=== PATIENT | female | born 1940 | race Caucasian/White ===

== ENCOUNTER 2019-01-28 12:40 | Outpatient (CLI) | payer MEDICARE, OTHER, SELFPAY ==
[2019-01-28 14:37] LABS: Basophils Percent Auto 0.3 % (0.2-1.2); Eosinophils Percent Auto 0.2 % (0-4.4); Hematocrit 40.5 % (37.0-47.0); Hemoglobin 13.3 g/dL (12.0-15.0); Immature Granulocyte Absolute 0.03 K/mm3 (0.00-0.031); Immature Granulocyte Percent A 0.3 % (0-0.5); Lymphocytes Absolute Auto 0.87 K/mm3 (0.9-3.2); Lymphocytes Percent Auto 8.6 % (18.3-44.2); Mean Corpuscular HGB Conc 32.8 g/dl (32-36); Mean Corpuscular Hemoglobin 29.4 pg (26-34); Mean Corpuscular Volume 89.6 fl (80-100); Mean Platelet Volume 9.9 fl (7.4-10.4); Monocytes Absolute Auto 0.7 K/mm3 (0.1-0.6); Monocytes Percent Auto 7.3 % (2.6-8.5); Neutrophils Absolute Auto 8.4 K/mm3 (1.3-6.7); Neutrophils Percent Auto 83.3 % (45.5-73.1); Platelet Count Result 190 k/mm3 (150-375); Red Blood Count 4.52 M/mm3 (4.2-5.4); Red Cell Distribution Width 13.4 % (11.5-14.5); White Blood Count 10.1 K/mm3 (4.5-10.0)
[2019-01-28 14:50] LABS: Albumin Level 4.5 g/dL (3.5-5.1); Estimated Glomerular Filt Rate > 60; Glucose 127 mg/dL (65-105)
[2019-01-28 14:57] LABS: Hemoglobin A1C 5.4 % (<5.7)
[2019-01-28 15:31] LABS: Urine Cotinine NEGATIVE
== END 2019-01-28 12:41 | disposition home or self-care (01) ==
LOC: ANHSURGERY 12:49
PROVIDERS: PCP Family Medicine; Visit Provider Orthopaedic Surgery
DX: Z01.818 Encounter for other preprocedural examination (principal); M17.0 Bilateral primary osteoarthritis of knee; I10 Essential (primary) hypertension; R94.31 Abnormal electrocardiogram [ECG] [EKG]; Z98.890 Other specified postprocedural states
CPT/HCPCS: 36415; 80307; 82040; 82565; 82947; 83036; 85025; 87081

== ENCOUNTER 2019-03-04 14:19 | Observation (INO) | payer MEDICARE, OTHER, SELFPAY ==
[2019-01-28 14:13] VITALS: BP 122/66; PULSE 72; RESP 18; TEMP 36.7; BMI 28.4
[2019-03-03] VITALS (11 sets, daily range): BP systolic 129–163; BP diastolic 68–110; PULSE 74–89; RESP 12–18; TEMP 36.5–36.9; O2SAT 92–99
[2019-03-03] MEDS: LACTATED RINGERS 1,000 ML 30 ML IV CONT ×2 (09:05→12:40)
--- NOTE | 2019-03-03 09:19 | WPDANESEPP ---
Anes - Eval Pre Procedure Procedure: Operation Date: 03/03/19 10:30 Proposed Procedures p Left Total Knee Arthroplasty(Left) - Devon Cuellar MD Date/Time: 03/03/19 09:19 Pre Op Diagnosis: Left Knee OA Patient Data Age: 78 Gender: F Height: 1.57 m Weight: 70.6 kg Last Vital Signs Temp 36.7 C 01/28/19 14:13 Pulse 72 01/28/19 14:13 Resp 18 01/28/19 14:13 BP 122/66 01/28/19 14:13 Allergies Allergy/AdvReac Type Severity Reaction Status Date / Time meperidine AdvReac Unknown Nausea Verified 01/28/19 14:02 Home Medications Medication Instructions Recorded Confirmed Type albuterol sulfate 1 inh INHALATION QID PRN 01/28/19 03/03/19 History alendronate 35 mg PO WEEKLY 01/28/19 03/03/19 History ascorbic acid (vitamin C) 1 g PO DAILY 01/28/19 03/03/19 History aspirin 1 tablet PO DAILY 01/28/19 03/03/19 History calcium carbonate [Calcium 600] 600 mg PO BID 01/28/19 03/03/19 History cholecalciferol (vitamin D3) 1,000 unit PO DAILY 01/28/19 03/03/19 History [Vitamin D3] diltiazem HCl 360 mg PO DAILY 01/28/19 03/03/19 History estradiol [Minivelle] 1 patch TRANSDERMAL 2XW 01/28/19 03/03/19 History fluticasone propionate 1 spray INTRANASAL DAILY 01/28/19 03/03/19 History glucosamine sulfate [Glucosamine] 500 mg PO DAILY 01/28/19 03/03/19 History levocetirizine 5 mg PO DAILY 01/28/19 03/03/19 History levothyroxine 150 mcg PO DAILY 01/28/19 03/03/19 History montelukast 10 mg PO DAILY 01/28/19 03/03/19 History multivitamin [Daily Multiple] 1 tablet PO DAILY 01/28/19 03/03/19 History omega 8-awc-lcy-fish oil [Fish Oil] 1 cap PO DAILY 01/28/19 03/03/19 History simvastatin 20 mg PO DAILY 01/28/19 03/03/19 History solifenacin [Vesicare] 10 mg PO DAILY 01/28/19 03/03/19 History vitamin E 400 unit PO DAILY 01/28/19 03/03/19 History zolpidem 5 mg PO HS 01/28/19 03/03/19 History budesonide-formoterol [Symbicort] 2 puff INHALATION Q12H 03/03/19 03/03/19 History Patient hx anesthesia problems: none Family hx anesthesia problems: none PMFSH Past Medical History Medical History Arthritis Hypertension Osteoarthritis of left knee Surgical History Surgical History History of bladder surgery (~2015) History of cholecystectomy (~1978) History of foot surgery (~1991) History of hysterectomy (~1975) History of laminectomy (~2012) History of shoulder surgery (~1996) History of total right knee replacement (~06/29/14) Social History Social History Smoking status: Never smoker Alcohol intake: never Gender identity (if verbalized by the patient): Female Exam Day of Procedure 03/03/19 09:19
--- NOTE | 2019-03-03 09:26 | WPDANESPNB ---
Anes - Peripheral Nerve Block Date/Time: 03/03/19 09:26 I have discussed with the patient/family/POA the placement of a peripheral nerve block for post-operative pain management, including associated risks, benefits, complications, and side effects. Alternative methods of post-operative analgesia were detailed. Questions were solicited and answers provided to the satisfaction of the patient/family/POA. Time-Out: A pre-procedural Time-Out was completed immediately before starting the procedure and confirmed: Patient Identification, Site, Procedure, Patient Position and the Availability of Requisite Equipment. Clinical Indications: Acute post-operative pain management requested by the operative surgeon. Nerve Block Insertion Note Anes-nerve block: adductor canal left Patient position: supine Skin prep: chlorhexidine Needle: 22 gauge, stimulating, insulated echogenic needle. Needle length: 80 mm Technique: ultrasound Injectate: bupivacaine 0.5% with epi 5 mcg/ml (30cc) Observations: tolerated well Complications: none Procedure start time:: 1020 Procedure end time:: 1022
--- NOTE | 2019-03-03 09:40 | WPDANESEPPF ---
Anes - Initial Pre Proc Eval Procedure: Operation Date: 03/03/19 10:30 Proposed Procedures p Left Total Knee Arthroplasty(Left) - Devon Cuellar MD Date/Time: 03/03/19 09:40 Surgeon: Devon Cuellar MD Pre Op Diagnosis: Left Knee OA Patient Data Age: 78 Gender: F Height: 1.57 m Weight: 68.7 kg Last Vital Signs Temp 36.9 C 03/03/19 09:20 Pulse 74 03/03/19 09:20 Resp 18 03/03/19 09:20 BP 149/73 H 03/03/19 09:20 Pulse Ox 96 03/03/19 09:20 Allergies Allergy/AdvReac Type Severity Reaction Status Date / Time meperidine AdvReac Unknown Nausea Verified 03/03/19 09:26 Home Medications Medication Instructions Recorded Confirmed Type albuterol sulfate 1 inh INHALATION QID PRN 01/28/19 03/03/19 History alendronate 35 mg PO WEEKLY 01/28/19 03/03/19 History ascorbic acid (vitamin C) 1 g PO DAILY 01/28/19 03/03/19 History aspirin 1 tablet PO DAILY 01/28/19 03/03/19 History calcium carbonate [Calcium 600] 600 mg PO BID 01/28/19 03/03/19 History cholecalciferol (vitamin D3) 1,000 unit PO DAILY 01/28/19 03/03/19 History [Vitamin D3] diltiazem HCl 360 mg PO DAILY 01/28/19 03/03/19 History estradiol [Minivelle] 1 patch TRANSDERMAL 2XW 01/28/19 03/03/19 History fluticasone propionate 1 spray INTRANASAL DAILY 01/28/19 03/03/19 History glucosamine sulfate [Glucosamine] 500 mg PO DAILY 01/28/19 03/03/19 History levocetirizine 5 mg PO DAILY 01/28/19 03/03/19 History levothyroxine 150 mcg PO DAILY 01/28/19 03/03/19 History montelukast 10 mg PO DAILY 01/28/19 03/03/19 History multivitamin [Daily Multiple] 1 tablet PO DAILY 01/28/19 03/03/19 History omega 9-hbj-qkb-fish oil [Fish Oil] 1 cap PO DAILY 01/28/19 03/03/19 History simvastatin 20 mg PO DAILY 01/28/19 03/03/19 History solifenacin [Vesicare] 10 mg PO DAILY 01/28/19 03/03/19 History vitamin E 400 unit PO DAILY 01/28/19 03/03/19 History zolpidem 5 mg PO HS 01/28/19 03/03/19 History budesonide-formoterol [Symbicort] 2 puff INHALATION Q12H 03/03/19 03/03/19 History Patient hx anesthesia problems: none Family hx anesthesia problems: none [facility] Past Medical History Medical History (Updated 03/03/19 @ 09:26 by Son Mcconnell DO) Arthritis Asthma Hyperlipidemia Hypertension Hypothyroidism Osteoarthritis of left knee Surgical History Surgical History History of bladder surgery (~2015) History of cholecystectomy (~1978) History of foot surgery (~1991) History of hysterectomy (~1975) History of laminectomy (~2012) History of shoulder surgery (~1996) History of total right knee replacement (~06/29/14) Social History Social History Smoking status: Never smoker Alcohol intake: never Gender identity (if verbalized by the patient): Female Anes - Eval Final PreProcedure Day of Procedure 03/03/19 09:40 Patient weight: overweight Heart: regular rate and rhythm Lungs: clear to auscultation and normal air movement Airway: Mallampati scale class II Neurological: alert and oriented Last oral intake: >/= 8 hours ASA classification: III Emergent: no Anesthetic plan: proceed Anesthesia type and monitoring: general LMA and standard monitoring Informed Consent: The patient's anesthetic plan and its attendant risks and benefits were discussed with the patient/family/POA. Questions were solicited and answers provided to the satisfaction of the patient/family/POA.
--- NOTE | 2019-03-03 10:35 | WPDHPUPDATE1 ---
History and Physical Update Update Date/Time: 03/03/19 10:35 History and Physical has been reviewed, including an updated exam of the patient. There are NO changes in the patient's condition. Risks, benefits, and alternatives have been discussed and questions answered. Patient agrees to proceed with procedure.
[2019-03-03] MEDS: ceFAZolin 2 GM/D5W 50 ML 2 GM/50 ML BAG IVPB (10:45)
[2019-03-03] MEDS: GENTAMICIN BONE CEMENT REFOBACIN 1 EACH TOPICAL (11:22)
--- NOTE | 2019-03-03 13:17 | P.OP_ITS ---
Procedure Note - Detailed Date of procedure: 03/03/19 Pre-op diagnosis: Left Knee OA Post-op diagnosis: same Procedure performed: Total knee arthroplasty, Implants: [employer] size 2 press-fit femur, size3 cemented low-profile tibia, 13mm CS polyethylene insert, 32mm asymmetric metal backed patellar component. Anesthesia: GETA and regional (subsartorial nerve block) Surgeon: Devon Cuellar MD Estimated blood loss (mL): 50 Drains: No Complications: None Findings: Good bone quality. 8 degree distal femoral resection at 5? valgus. Moderate medial release. Good PCL function. External rotation at 4? based on flexion gap gap balancing. OPERATIVE DETAILS: The patient was given a nerve block preoperatively, and then brought to the operating room. A general anesthetic was administered. The leg was prepped and draped in the usual sterile fashion. The limb was elevated and the tourniquet inflated to 300 mmHg during initial exposure. A longitudinal incision was created along the medial border of the patella and patellar tendon, and a minimally invasive optimized mid-vastus approach to the knee was performed. A moderate medial release was taken. The knee was then flexed. The osteophytes were carefully removed. The intramedullary guide was placed in the femoral canal. The distal femoral resection was then taken with the oscillating saw. The collateral ligaments were carefully protected. The tibia was carefully exposed. The jig was applied, and the proximal tibia was resected according to preoperative plan. The knee was balanced in extension. Appropriate releases were taken where needed. The anterior cruciate ligament and meniscal remnants were removed. The posterior cruciate ligament was preserved. The patella was measured. Patellar resection was carried out with the oscillating saw. The lug holes drilled. The femur was sized and rotation assessed using a combination of gap balancing, posterior referencing, and the AP axis. The 4 in 1 cutting block was used to finish the femoral cuts after equal gaps were assured. The lug holes were drilled. The osteophytes were carefully removed from the back of the knee. The knee was copiously irrigated with antibiotic solution periodically throughout the procedure. The meniscal remnants were removed. The spacer block was used to confirm equal flexion and extension gaps. Further releases were performed as needed. The tibia was sized and broached. The bony surfaces were prepared for cementing with pulsatile lavage. The real tibial component was cemented into position followed by press fitting the femoral component. Excess cement was carefully removed. The patella component was press- fit. Patellar tracking was carefully assessed. No additional releases were required. The wound was closed with #1 Vycril suture, #2 Quill suture, 0-Quill suture, and 2-0 Quill suture followed by Steri-Strips. A sterile bulky dressing was applied. Meticulous hemostasis was maintained throughout the procedure. There were no complications. The patient was extubated and brought to the recovery room in stable condition after the application of sterile dressing with Aurelio bandage.
--- NOTE | 2019-03-03 13:38 | SUR.PHASEI ---
[id number] sbar faxed to floor floor notiified
--- NOTE | 2019-03-03 13:40 | SUR.PHASEI ---
[id number] family updated on pt condition then sent to room
--- NOTE | 2019-03-03 14:15 | ADMGEN ---
This patient, Toña Hurst, was admitted to [facility] @ 1400. Patient/family oriented to hospital policies and general routines including ID bracelet, bed and alarms, visiting hours, pain management, procedures, bathroom and other care routines, personal items, smoking policy, room service/diet, and visiting hours. Valuables list has been completed. Information on how to activate the Rapid Response Team has been discussed. Patient/Family are encouraged to report perceived risks to care and to ask questions if they do not understand what they are told or what they should do.
[2019-03-03] MEDS: SODIUM CHLORIDE 0.9% IV 1,000 ML 125 ML IV CONT (15:03)
[2019-03-03] MEDS: ONDANSETRON INJ 4 MG/2 ML VIAL IV PUSH (15:05)
[2019-03-03] MEDS: CALCIUM CARBONATE (OSCAL) 500 MG TABLET PO (17:20)
[2019-03-03] MEDS: DOCUSATE SODIUM 100 MG CAPSULE PO (17:20)
[2019-03-03] MEDS: ASPIRIN 325 MG ENTERIC TABLET PO (20:40)
[2019-03-03] MEDS: ZOLPIDEM TARTRATE 5 MG TABLET PO (20:40)
[2019-03-03] MEDS: FAMOTIDINE 20 MG TABLET PO (20:40)
--- NOTE | ~2019-03-04 | XR_ITS ---
EXAMINATION: XR knee LT 2V DATE: 03/03/2019 12:50 INDICATION: Total left knee arthroplasty. Postop. TECHNIQUE: 2 views of left knee were obtained. COMPARISON: Left knee radiographs 11/03/2018 FINDINGS: There is a total left knee arthroplasty with patellar resurfacing in near-anatomic alignmen t. No fracture. There is gas in the knee joint and soft tissues, consistent with recent surgery. IMPRESSION: 1. Total left knee arthroplasty in near-anatomic alignment. Reviewed, dictated and finalized at location A. [facility]
[2019-03-04 02:05] VITALS: BP 146/86; PULSE 85; RESP 16; TEMP 36.7; O2SAT 98
[2019-03-04] MEDS: ONDANSETRON INJ 4 MG/2 ML VIAL IV PUSH ×2 (03:35→07:38)
[2019-03-04] MEDS: LEVOTHYROXINE SODIUM 150 MCG TABLET PO (05:42)
[2019-03-04 06:06] VITALS: BP 142/64; PULSE 83; RESP 18; TEMP 36.8; O2SAT 96
[2019-03-04 06:30] LABS: Basophils Percent Auto 0.2 % (0.2-1.2); Hematocrit 33.3 % (37.0-47.0); Hemoglobin 11.5 g/dL (12.0-15.0); Immature Granulocyte Absolute 0.03 K/mm3 (0.00-0.031); Immature Granulocyte Percent A 0.3 % (0-0.5); Lymphocytes Absolute Auto 0.79 K/mm3 (0.9-3.2); Mean Corpuscular HGB Conc 34.5 g/dl (32-36); Mean Corpuscular Hemoglobin 29.5 pg (26-34); Mean Corpuscular Volume 85.4 fl (80-100); Mean Platelet Volume 9.5 fl (7.4-10.4); Monocytes Absolute Auto 1.2 K/mm3 (0.1-0.6); Monocytes Percent Auto 12.6 % (2.6-8.5); Neutrophils Absolute Auto 7.8 K/mm3 (1.3-6.7); Neutrophils Percent Auto 78.9 % (45.5-73.1); Platelet Count Result 160 k/mm3 (150-375); Red Cell Distribution Width 13.1 % (11.5-14.5); White Blood Count 9.9 K/mm3 (4.5-10.0)
[2019-03-04 06:47] LABS: Blood Urea Nitrogen 12 mg/dL (7-17); Calcium 8.2 mg/dL (8.4-10.2); Carbon Dioxide 23 mmol/L (22-30); Chloride 99 mmol/L (98-107); Estimated CRCL calculation 70 ml/min; Estimated Glomerular Filt Rate > 60; Glucose 113 mg/dL (65-105); Potassium 3.7 mmol/L (3.4-5.0); Sodium 132 mmol/L (137-145)
[2019-03-04 08:00] VITALS: PULSE 83; RESP 18; O2SAT 96
[2019-03-04] MEDS: CHOLECALCIFEROL 1,000 UNIT TABLET 1000 UNITS PO (08:28)
[2019-03-04] MEDS: CALCIUM CARBONATE (OSCAL) 500 MG TABLET PO ×2 (08:28→16:05)
[2019-03-04] MEDS: FAMOTIDINE 20 MG TABLET PO ×2 (08:28→21:03)
[2019-03-04] MEDS: DOCUSATE SODIUM 100 MG CAPSULE PO ×2 (08:28→16:06)
[2019-03-04] MEDS: MONTELUKAST SODIUM 10 MG TABLET PO (08:28)
[2019-03-04] MEDS: MULTIVITAMINS THERAPEUTIC TAB (*BKC) 1 TABLET PO (08:28)
[2019-03-04] MEDS: ASCORBIC ACID 500 MG TABLET 1000 MG PO (08:29)
[2019-03-04] MEDS: SIMVASTATIN 20 MG TABLET PO (08:31)
[2019-03-04] MEDS: ASPIRIN 325 MG ENTERIC TABLET PO ×2 (08:31→21:03)
[2019-03-04] MEDS: LORATADINE 5 MG TABLET PO (08:31)
[2019-03-04] MEDS: FLUTICASONE PROPIONATE 0.05% NA SPR 16 GM BTL (*BKC) 1 SPRAY NASAL (08:33)
--- NOTE | 2019-03-04 09:34 | WPDANESPN ---
Anes - Prog Note Post-Op Date/Time: 03/04/19 09:34 Cardiovascular status: normal Respiratory status: normal Airway patency: baseline Mental status: baseline Post-Op hydration status: normal Vital Signs: Last Vital Signs Temp 98.2 F 03/04/19 06:06 Pulse 83 03/04/19 06:06 Resp 18 03/04/19 06:06 BP 142/64 H 03/04/19 06:06 Pulse Ox 96 03/04/19 06:06 I/O: Intake & Output 03/03/19 03/04/19 03/04/19 23:59 07:59 15:59 Intake Total 1350 250 Output Total 230 Balance 1350 20 Laboratory Tests 03/04/19 06:07 03/04/19 06:07 03/03/19 03/04/19 03/04/19 08:51 06:07 06:07 WBC 9.9 RBC 3.90 L Hgb 11.5 L Hct 33.3 L MCV 85.4 MCH 29.5 MCHC 34.5 RDW 13.1 Plt Count 160 MPV 9.5 Immature Gran % (Auto) 0.3 Neut % (Auto) 78.9 H Lymph % (Auto) 8.0 L [place] % (Auto) 12.6 H Eos % (Auto) 0.0 Baso % (Auto) 0.2 Lymph # (Auto) 0.79 L [place] # (Auto) 1.2 H Eos # (Auto) 0.0 Baso # (Auto) 0.0 Abs Immat Gran (auto) 0.03 Absolute Neuts (auto) 7.8 H Absolute Nucleated RBC 0.0 Nucleated RBC % 0.0 Sodium 132 L Potassium 3.7 Chloride 99 Carbon Dioxide 23 BUN 12 Creatinine 0.50 L Estim Creat Clear Calc 70 Estimated GFR > 60 Glucose 113 H Calcium 8.2 L Blood Type A Positive Antibody Screen Negative Post-procedural complaints: nausea and vomiting Patient Feedback: Patient satisfied with anesthetic care.
[2019-03-04 14:00] VITALS: BP 153/71; PULSE 76; RESP 16; TEMP 36.5; O2SAT 96
--- NOTE | 2019-03-04 16:04 | PM.DS ---
DS: Diagnosis Admitting Diagnosis Admitting Diagnosis: Encounter for other preprocedural examination Discharge Diagnosis (1) Osteoarthritis of left knee: Qualifiers: Osteoarthritis type: primary Qualified Code(s): M17.12 - Unilateral primary osteoarthritis, left knee Code(s): M17.12 - Unilateral primary osteoarthritis, left knee Status: Acute DS: Summary Hospital Course Reason for hospitalization: Total knee arthroplasty. Hospital Course: Tolerated surgery well. Progressed appropriately with therapy. Status at Discharge Functional status at discharge: uses cane/walker Time Spent with Patient Time attestation: Total time spent providing and/or coordinating discharge services: Exam Const: General: no acute distress Resp: Effort & Inspection: normal respiratory effort Skin: Other: Wound healing well. Mepilex dressing intact. No hematoma or drainage. Neuro: Motor exam (neuro): strength 5/5 throughout Sensory Exam: normal sensation Psych: Mental Status: mental status grossly normal Speech and movement: speech and movement normal DS: Data Data Completed and Pending Labs on day of discharge: Labs from last 24 hours 03/04/19 03/04/19 06:07 06:07 WBC 9.9 RBC 3.90 L Hgb 11.5 L Hct 33.3 L MCV 85.4 MCH 29.5 MCHC 34.5 RDW 13.1 Plt Count 160 MPV 9.5 Immature Gran % (Auto) 0.3 Neut % (Auto) 78.9 H Lymph % (Auto) 8.0 L [place] % (Auto) 12.6 H Eos % (Auto) 0.0 Baso % (Auto) 0.2 Lymph # (Auto) 0.79 L [place] # (Auto) 1.2 H Eos # (Auto) 0.0 Baso # (Auto) 0.0 Abs Immat Gran (auto) 0.03 Absolute Neuts (auto) 7.8 H Absolute Nucleated RBC 0.0 Nucleated RBC % 0.0 Sodium 132 L Potassium 3.7 Chloride 99 Carbon Dioxide 23 BUN 12 Creatinine 0.50 L Estim Creat Clear Calc 70 Estimated GFR > 60 Glucose 113 H Calcium 8.2 L Discharge Plan Discharge Attending physician on discharge: Devon Cuellar Discharging Clinician: Devon Cuellar Patient Disposition: Home, Self-Care Activity: may shower Diet: as tolerated Wound Care Instructions: follow printed instructions Follow-up/Referrals: Devon Cuellar MD [Physician] - Discharge Medications: New oxycodone-acetaminophen 5-325 mg tablet 1 - 2 tablet PO Q4-6H MDD 8 tablets PRN (Reason: pain) Qty: 40 RF: 0 Continued ascorbic acid (vitamin C) 1,000 mg Tablet 1 g PO DAILY RF: 0 estradiol [Minivelle] 0.075 mg/24 hr Patch Semiweekly 1 patch TRANSDERMAL 2XW RF: 0 glucosamine sulfate [Glucosamine] 500 mg Tablet 500 mg PO DAILY RF: 0 alendronate 35 mg Tablet 35 mg PO WEEKLY RF: 0 calcium carbonate [Calcium 600] 600 mg calcium (1,500 mg) Tablet 600 mg PO BID RF: 0 simvastatin 20 mg Tablet 20 mg PO DAILY RF: 0 montelukast 10 mg Tablet 10 mg PO DAILY RF: 0 zolpidem 5 mg Tablet 5 mg PO HS RF: 0 fluticasone propionate 50 mcg/actuation [place],Suspension 1 spray INTRANASAL DAILY RF: 0 vitamin E 400 unit Capsule 400 unit PO DAILY RF: 0 solifenacin [Vesicare] 10 mg Tablet 10 mg PO DAILY RF: 0 levocetirizine 5 mg Tablet 5 mg PO DAILY RF: 0 omega 5-mml-lwy-fish oil [Fish Oil] 1,000 mg (120 mg-180 mg) Capsule 1 cap PO DAILY RF: 0 diltiazem HCl 360 mg Capsule,Extended Release 24hr 360 mg PO DAILY RF: 0 levothyroxine 150 mcg Tablet 150 mcg PO DAILY RF: 0 aspirin 81 mg Tablet,Chewable 1 tablet PO DAILY RF: 0 albuterol sulfate 90 mcg/actuation Hfa Aerosol Inhaler 1 inh INHALATION QID PRN (Reason: Shortness Of Breath) RF: 0 cholecalciferol (vitamin D3) [Vitamin D3] 1,000 unit Capsule 1,000 unit PO DAILY RF: 0 multivitamin [Daily Multiple] Tablet 1 tablet PO DAILY RF: 0 Symbicort 80-4.5 mcg/actuation Hfa Aerosol Inhaler 2 puff INHALATION Q12H RF: 0 Date of admission: 03/04/19 14:19 Admitting Provider: Devon Cuellar
[2019-03-04] MEDS: SOLIFENACIN 5 MG TABLET 10 MG PO (16:05)
[2019-03-04] MEDS: METOCLOPRAMIDE HCL INJ 10 MG/2 ML VIAL IV PUSH ×2 (18:29→23:27)
[2019-03-04] MEDS: ZOLPIDEM TARTRATE 5 MG TABLET PO (21:03)
[2019-03-04 22:00] VITALS: BP 148/78; PULSE 89; RESP 18; TEMP 36.9; O2SAT 98
[2019-03-05] MEDS: LEVOTHYROXINE SODIUM 150 MCG TABLET PO (05:43)
[2019-03-05] MEDS: METOCLOPRAMIDE HCL INJ 10 MG/2 ML VIAL IV PUSH (05:44)
[2019-03-05 06:00] VITALS: BP 122/69; PULSE 89; RESP 18; TEMP 36.9; O2SAT 98
[2019-03-05] MEDS: ASPIRIN 325 MG ENTERIC TABLET PO (08:45)
[2019-03-05] MEDS: CHOLECALCIFEROL 1,000 UNIT TABLET 1000 UNITS PO (08:45)
[2019-03-05] MEDS: CALCIUM CARBONATE (OSCAL) 500 MG TABLET PO (08:45)
[2019-03-05] MEDS: ASCORBIC ACID 500 MG TABLET 1000 MG PO (08:45)
[2019-03-05] MEDS: FLUTICASONE PROPIONATE 0.05% NA SPR 16 GM BTL (*BKC) 1 SPRAY NASAL (08:46)
[2019-03-05] MEDS: DOCUSATE SODIUM 100 MG CAPSULE PO (08:46)
[2019-03-05] MEDS: FAMOTIDINE 20 MG TABLET PO (08:46)
[2019-03-05] MEDS: LORATADINE 5 MG TABLET PO (08:47)
[2019-03-05] MEDS: MONTELUKAST SODIUM 10 MG TABLET PO (08:47)
[2019-03-05] MEDS: SIMVASTATIN 20 MG TABLET PO (08:47)
[2019-03-05] MEDS: MULTIVITAMINS THERAPEUTIC TAB (*BKC) 1 TABLET PO (08:47)
[2019-03-05] MEDS: SOLIFENACIN 5 MG TABLET 10 MG PO (08:47)
[2019-03-05 09:19] VITALS: PULSE 80; RESP 16
[2019-03-05 09:24] VITALS: PULSE 80; RESP 16
== END 2019-03-05 09:58 | disposition home or self-care (01) ==
LOC: ANHSURGERY 14:50 → ANH3MEDSUR 16:08
PROVIDERS: Admitting Provider Orthopaedic Surgery; Visit Provider Orthopaedic Surgery
PROC: (CPT 27447; principal; 2019-03-03 10:30)
DX: M17.12 Unilateral primary osteoarthritis, left knee (principal); G89.18 Other acute postprocedural pain; I10 Essential (primary) hypertension; E78.5 Hyperlipidemia, unspecified; E03.9 Hypothyroidism, unspecified; J45.909 Unspecified asthma, uncomplicated; Z79.82 Long term (current) use of aspirin; Z79.899 Other long term (current) drug therapy; Z88.5 Allergy status to narcotic agent; Z96.651 Presence of right artificial knee joint
CPT/HCPCS: 27447; 64447; 36415; 73560; 80048; 85025; 86850; 86900; 86901; 94640; 96365; 96366; 96375; 96376; 97110; 97116; 97161; 97165; 97530; 97535; A9270; C1713; C1776; G0378; G0379; J0131; J0171; J0690; J1100; J1885; J2250; J2270; J2405; J2704; J2765; J2795; J3010; J7030; J7120

== ENCOUNTER 2021-12-18 13:29 | Outpatient (CLI) | payer MEDICARE, OTHER, SELFPAY ==
--- NOTE | ~2021-12-18 | XR_ITS ---
XR foot LT min 3V DATE: 12/18/2021 13:41 INDICATION: Chronic dorsal and lateral foot pain TECHNIQUE: 4 views COMPARISON: 03/16/2017 left foot FINDINGS: Prominent plantar calcaneal enthesopathy, without erosive change or periostitis. There is prominent osteoarthritic change at some tarsal and tarsometatarsal joints, particularly the second through fifth tarsometatarsal joints. Hallux valgus and bunion deformity and mild osteoarthritis at the first metatarsophalangeal joint. No fracture, dislocation, suspicious periosteal reaction or bone destruction. (There are some chronic areas of periosteal reaction along some of the metatarsal shafts, stable since 2018.) IMPRESSION: Polyarticular osteoarthritis Hallux valgus and bunion deformity Plantar calcaneal enthesopathy Reviewed, dictated and finalized at location A.
== END 2021-12-18 13:30 | disposition home or self-care (01) ==
LOC: ANHBWCIMG 13:32
PROVIDERS: PCP Family Medicine; Visit Provider Orthopaedic Surgery
DX: M79.672 Pain in left foot (principal); M19.072 Primary osteoarthritis, left ankle and foot; M20.11 Hallux valgus (acquired), right foot; M77.32 Calcaneal spur, left foot
CPT/HCPCS: 73630